=== PATIENT | female | born 2000 | race Caucasian/White ===

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

== ENCOUNTER 2018-01-05 23:36 | Observation (INO) | payer MEDICAID, OTHER ==
[~2018-01-05] VITALS: Ht 152.4 cm; Wt 59.0 kg
[2018-01-05 23:40] VITALS: BP 106/66
[2018-01-06] MEDS ORDERED: D5W/LACTATED RINGERS 1,000 ML IV SCH (01:18)
[2018-01-06] MEDS ORDERED: TERBUTALINE SULFATE 1 MG/ML 1ML VIAL SC PRN (01:30)
== END 2018-01-06 03:00 | disposition home or self-care (01) | DRG 566 ==
LOC: ER 23:36 → LDRP 23:53
PROVIDERS: ADMIT Specialist; ATTEND Specialist
DX: O46.92 Antepartum hemorrhage, unspecified, second trimester (principal); O26.892 Other specified pregnancy related conditions, second trimester; O21.2 Late vomiting of pregnancy; R51 Headache; R10.9 Unspecified abdominal pain; Z3A.25 25 weeks gestation of pregnancy
CPT/HCPCS: 59025; 76815; 81002; 94760; G0378; 96365; 96366; 96372